=== PATIENT | male | born 2000 | race Two or more races ===

== ENCOUNTER → 2025-04-21 | Emergency (ER) | payer MEDICAID, OTHER ==
[~2025-04-21] VITALS: Ht 167.6 cm; Wt 145.1 kg
[2025-04-21 14:26] VITALS: BP 115/73; PULSE 87; RESP 18; TEMP 98.1; O2SAT 96
== END | disposition left against medical advice (07) ==
LOC: ER 14:22
DX: M54.6 Pain in thoracic spine (principal); M25.512 Pain in left shoulder; Z53.21 Procedure and treatment not carried out due to patient leaving prior to being seen by health care provider